=== PATIENT | male | born 1955 | race African-American/Black ===

== ENCOUNTER → 2018-01-18 | Outpatient (CLI) | payer OTHER ==
--- NOTE | 2018-01-18 11:16 | RAD ---
DATE: January 18, 2018 EXAM: DIGITAL DIAGNOSTIC BILATERAL, BREAST BILATERAL SONOGRAPHY HISTORY: Bilateral breast pain behind the nipple for 2 months. COMPARISON: None. First time study. This study was interpreted with the benefit of Computerized Aided Detection (CAD). BILATERAL DIAGNOSTIC MAMMOGRAPHIC FINDINGS: Symmetric heterogeneous dense retroareolar breast parenchyma is seen. This is consistent with gynecomastia. There are no dominant suspicious masses, suspicious microcalcifications or evidence of architectural distortion. BILATERAL BREAST SONOGRAPHY Right breast: High-resolution sonography of the retroareolar region of the right breast was performed. Gynecomastia is seen which is symmetric with the left side. Left breast: High-resolution sonography of the retroareolar region of left breast was performed. Gynecomastia is seen which is symmetric with the right side. IMPRESSION: Bilateral gynecomastia. Recommend clinical follow-up with regard to any new palpable lump. BI-RADS CATEGORY: 2 BENIGN FINDING RECOMMENDED FOLLOW-UP: CLIN FOLLOW UP IMAGING CLINICALLY INDICATED Mammography is a sensitive method for finding small breast cancers, but it does not detect them all and is not a substitute for careful clinical examination. A negative mammogram does not negate a clinically suspicious finding and should not result in delay in biopsying a clinically suspicious abnormality. "Our facility is accredited by the [employer] Mammography Program." The patient's breast density may affect the ability of mammography to detect breast cancer. There are 4 categories of breast density, A, B, C and D. Breast density A means that most of the breast tissue is replaced with adipose tissue and therefore is not dense. Breast density B means that the breast tissue is mildly dense and scattered. Breast density C means that the breast tissue is heterogeneously dense. Breast density D means that the breast tissue is very dense. Breast densities especially C and D may decrease the sensitivity of mammography to detect breast cancer. Therefore, the patient may benefit from 3-D breast mammography (3D breast tomography) as a part of their screening mammogram. Insurance may or may not pay for this additional imaging. The patient's breast density based on today's mammogram is category C.
== END | disposition home or self-care (01) ==
LOC: MAMMO 09:59
PROVIDERS: ATTEND Internal Medicine
DX: N62 Hypertrophy of breast (principal); N64.4 Mastodynia
CPT/HCPCS: 76641; 77066

== ENCOUNTER → 2018-04-25 | Outpatient (CLI) | payer OTHER | LOC: SURG 12:55 | PROVIDERS: ATTEND Anesthesiology | DX: M79.1 Myalgia (principal); E11.9 Type 2 diabetes mellitus without complications; Z98.890 Other specified postprocedural states; Z88.1 Allergy status to other antibiotic agents; Z79.82 Long term (current) use of aspirin; Z72.89 Other problems related to lifestyle | CPT/HCPCS: 20553; 82947 ==